=== PATIENT | male | born 1955 | race Caucasian/White ===

== ENCOUNTER 2018-01-25 15:21 | Emergency (ER) | payer SELFPAY ==
[~2018-01-25] VITALS: Ht 177.8 cm; Wt 91.0 kg
[2018-01-25 15:22] VITALS: BP 186/95
[2018-01-25] MEDS ORDERED: METO100T16 PO (15:24)
[2018-01-25] MEDS ORDERED: LOSA25TA12 PO (15:24)
== END 2018-01-25 18:17 | disposition left against medical advice (07) ==
LOC: ER 15:21
DX: Z53.21 Procedure and treatment not carried out due to patient leaving prior to being seen by health care provider (principal)